=== PATIENT | female | born 1975 | race Caucasian/White ===

== ENCOUNTER 2017-06-13 12:35 | Outpatient (CLI) | payer OTHER ==
[~2017-06-13 12:35] MED LIST: METFORMIN HCL500 MG; PROGESTERONE200 MG; WELLBUTRIN75 MG
== END 2017-06-13 13:22 | disposition home or self-care (01) ==
LOC: RAD 501 12:35
DX: C56.9 Malignant neoplasm of unspecified ovary (principal); Z01.818 Encounter for other preprocedural examination

== ENCOUNTER 2017-07-27 11:32 | Outpatient (CLI) | payer OTHER | END 2017-07-27 12:32 | disposition home or self-care (01) | LOC: RAD 501 11:32 | DX: Z01.818 Encounter for other preprocedural examination (principal) ==

== ENCOUNTER 2020-01-25 10:45 | Outpatient (CLI) | payer OTHER | END 2020-01-25 15:00 | disposition home or self-care (01) | LOC: PPH VACUNA 10:45 | DX: Z23 Encounter for immunization (principal) ==

== ENCOUNTER → 2024-06-18 | Emergency (ER) | payer OTHER ==
[~2024-06-18] VITALS: Ht 165.1 cm; Wt 74.8 kg
[~2024-06-18] MED LIST changes: +AZASAN100 MG PO; +UCERIS9 MG PO
== END | disposition left against medical advice (07) ==
LOC: ER 16:36
DX: Z53.21 Procedure and treatment not carried out due to patient leaving prior to being seen by health care provider (principal)